=== PATIENT | female | born 1930 | race Caucasian/White ===

== ENCOUNTER 2016-05-11 10:02 | Emergency (ER) | payer MEDICARE, OTHER ==
[2016-05-11] MEDS ORDERED: ALBUTEROL SULFATE 2.5 MG/0.5 ML VIAL.NEB IH ONE ×2 (10:19→10:21)
[2016-05-11 10:22] VITALS: BP 145/64
--- NOTE | 2016-05-11 10:46 | ERNOTE ---
Date of Service: 05/11/16 Time Seen by Provider: 05/11/16 10:10 Stated Complaint: SORE THROAT/COUGH Presenting Symptoms:: cough, sore throat, runny nose, fever Source: patient Exam Limitations: no limitations Immunizations: IMMUNIZATION HX Immunizations Up to Date Yes History of Influenza Vaccine Yes Hx Pneumococcal Vaccination Yes Allergies/Adverse Reactions: Allergies No Known Allergies Allergy (Verified 05/11/16 10:17) Home Medications: HOME MEDICATIONS Cefuroxime Axetil [Cefuroxime] 500 mg PO BID #20 tablet 05/11/16 [Last Taken Unknown] Hydrochlorothiazide [Hydrodiuril] 25 mg PO DAILY 05/11/16 [Last Taken Unknown] Multivit with Calcium,Iron,Min [One Daily Women's] 1 each PO DAILY 05/11/16 [ Last Taken Unknown] Omeprazole 40 mg PO DAILY 05/11/16 [Last Taken Unknown] - History of Present Ilness Narrative: 85y/o female patient presented to the emergency room today for complaints of a cough and a sore throat. States she has had this cough for a week. She is coughing up sputum that is green. She states she also has a runny nose with clear nasal drainage. Has been feeling rundown and feverish. Date (Duration): 05/11/16 Timing: getting worse Severity: mild Frequency/Possible Cause: Reports: no prior episodes Modifying Factors - Improves: Reports: rest Modifying Factors - Worsens: Reports: activity Associated Symptoms: Reports: cough, shortness of breath, wheezing, nasal congestion, nasal drainage, sore throat, fever/chills. Denies: chest pain/ soreness, facial pain, dizziness, lightheadedness, headache, muscle aches Review of Systems - Review of Systems Constitutional: Present: fever, fatigue EYE: Present: no symptoms reported ENT: Present: nasal drainage, sore throat Respiratory: Present: See HPI, shortness of breath, cough Cardiology: Present: no symptoms reported. Absent: chest pain, syncope Gastrointestinal/Abdominal: Present: no symptoms reported Genitourinary: Present: no symptoms reported Musculoskeletal: Present: no symptoms reported Skin: Present: no symptoms reported Neurological: Present: no symptoms reported Endocrine: Present: no symptoms reported Hematologic/Lymphatic: Present: no symptoms reported Psych: Present: no symptoms reported All Other Systems: All systems neg except as marked - Patient's Past Medical History Patient History - Medical: No pertinent hx Patient History - Cardiac/Respiratory: Hypertension Patient History - Cancer: No Hx of Cancer Patient History - Surgical Procedures: Cholecystectomy Patient History - Other: None LMP (females 10-50): post mennopausal - Social History Living Situations: alone Abuse History: No History of abuse Psych History: No pertinent hx Smoking Status: Never smoker - Immunizations Immunizations Up to Date: Yes Hx Pneumococcal Vaccination: Yes History of Influenza Vaccine: Yes Physical Exam - Physical Exam General Appearance: Present: wd/wn Eye Exam: Normal inspection: bilateral Ears, Nose, Throat: Present: normal ENT inspection. Absent: nasal congestion, sinus pain/drainage Neck: Present: normal inspection, nontender, full range of motion. Absent: lymphadenopathy (R), lymphadenopathy (L) Respiratory: Present: chest nontender, wheezing Cardiovascular/Chest: Present: regular rate, rhythm, no murmur Gastrointestinal/Abdominal: Present: normal bowel sounds Rectal Exam: Present: nontender Back Exam: Present: normal inspection Extremity Exam: Present: normal inspection Neurological Exam: Present: alert, oriented, normal mood/affect, no motor/ sensory deficits Skin Exam: Present: normal color Lymphatic Exam: Present: no adenopathy ED Progress - Results and Orders Patient's Lab Results:: I have reviewed the patient's lab results. - Vital Signs Patient's Vital Signs:: I have reviewed the patient's vital signs. Vital Signs: Vital Signs 05/11/16 05/11/16 05/11/16 10:05 10:21 10:26 Temperature 36.4 C L Pulse Rate 86 83 Respiratory 20 16 Rate Blood Pressure 87/67 145/64 O2 Sat by Pulse 92 94 Oximetry - X-Ray X-Ray #1 X-Ray: chest Interpretation: Reviewed by me X-ray Comments: Findings: There is mild hyperinflation of the lung dyer compatible with COPD emphysema. There is some left basilar scarring or atelectasis. There is some minimal consolidation right middle lobe. Atelectasis versus developing infiltrate. There are no other focal areas of lung consolidation. Heart size and vascularity appear within normal limits. There are granulomatous and atherosclerotic calcifications. IMPRESSION: RIGHT MIDDLE LOBE CONSOLIDATION ATELECTASIS VERSUS DEVELOPING INFILTRATE. LEFT BASILAR ATELECTASIS OR SCARRING. COPD/ EMPHYSEMA. Electronically signed by Chaitanya Dela Cruz M.D.. - Progress/Reassessment Chief Complaint: Upper Respiratory Symptoms Progress:: Improved Plan - Plan Plan: Diagnosis right middle lobe pneumonia. She is currently sent home on antibiotics. Follow-up with her physician in the next few days. Departure - Departure Clinical Impression: Right middle lobe pneumonia Qualifiers: Pneumonia type: due to unspecified organism Qualified Code(s): J18.1 - Lobar pneumonia, unspecified organism Disposition: Home Follow Up Needed Condition: Stable Instructions: Community-Acquired Pneumonia, Adult, [id number] Additional Instructions: Please continue your current home medication. Start antibiotics today. Return to the emergency room if symptoms persist or you become short of breath. Follow -up with your primary care physician in a few days. Referrals: Neil Kamara MD [Primary Care Provider] - Prescriptions: Cefuroxime Axetil [Cefuroxime] 500 mg PO BID #20 tablet
[2016-05-11 10:56] LABS: Hemoglobin 14.2 gm/dL (12.5-16.0); Mean Cell Volume 86.2 fl (78-100); Mean Corpuscular Hemoglobin 29.2 pg (27-31); Mean Corpuscular Hgb Conc 33.8 g/dl (32-36); Mean Platelet Volume 9.3 fl (6.0-9.5); Neutrophil # 5.9 K/mm3 (1.3-6.0); Neutrophil % 53.6 % (42-75.0); Platelet Count 233 K/mm3 (150-450); Red Blood Count 4.87 M/mm3 (4.2-5.4); Red Cell Distribution Width 12.6 % (11.5-14.0); White Blood Count 11.1 K/mm3 (4.0-10.5)
[2016-05-11 11:10] LABS: Anion Gap 14.1 mmol/L (6.8-13.8); BUN/Creatinine Ratio 17.7 (9.0-21.6); Bilirubin, Total 0.5 mg/dL (0.0-1.1); Ca. Corrected For Albumin 8.5 mg/dL (8.4-10.2); Calcium * 8.8 mg/dL (7.9-10.9); Carbon Dioxide 28.6 mmol/L (24-32.6); Potassium 3.7 mmol/L (3.4-4.6); Total Protein 7.2 gm/dL (6.2-8.2)
== END 2016-05-11 11:54 | disposition home or self-care (01) ==
LOC: ER 10:02
DX: J18.1 Lobar pneumonia, unspecified organism (principal); I10 Essential (primary) hypertension